=== PATIENT | female | born 2000 | race Caucasian/White ===

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

== ENCOUNTER → 2018-04-09 15:13 | Outpatient (CLI) | payer MEDICAID, SELFPAY ==
--- NOTE | 2018-04-09 | NVE_ITS ---
Venous Exam Indications: 729.5 Pain in limb. IMPRESSIONS 1. There is no evidence of significant Reflux. 2. No evidence of deep or superficial vein thrombosis involving the right lower extremity Right lower extremity venous duplex evaluation. Doppler flow study including spectral analysis, color and saenz scale imaging. Location: Vascular laboratory. Patient status: Outpatient. HRT. Right knee and calf pain x 5 days. Tables: Venous flow and imaging: + +-------+ + Location Overall Flow properties + +-------+ + Right common femoral Patent Normal phasicity; spontaneous; normal augmentation; compressible + +-------+ + Right saphenofemoral junction Patent Compressible + +-------+ + Right profunda femoral Patent Compressible + +-------+ + Right femoral Patent Normal phasicity; spontaneous; normal augmentation; compressible + +-------+ + Right greater saphenous Patent Normal phasicity; spontaneous; normal augmentation; compressible + +-------+ + Right popliteal Patent Normal phasicity; spontaneous; normal augmentation; compressible + +-------+ + Right posterior tibial Patent Compressible + +-------+ + Right peroneal Patent Compressible + +-------+ + Right gastrocnemius Patent Compressible + +-------+ + Right soleal Patent Compressible + +-------+ + (Report amended ) Electronically signed by: Jaime Solis [id number]
== END ==
PROVIDERS: PCP Nurse Practitioner Family; Visit Provider Nurse Practitioner
DX: M79.661 Pain in right lower leg (principal); M79.89 Other specified soft tissue disorders
CPT/HCPCS: 93971

== ENCOUNTER → 2019-12-13 10:00 | Outpatient (CLI) | payer MEDICAID, SELFPAY | PROVIDERS: Visit Provider Nurse Practitioner Family | DX: N39.0 Urinary tract infection, site not specified (principal) | CPT/HCPCS: 87086 ==

== ENCOUNTER → 2019-12-17 16:25 | Outpatient (CLI) | payer MEDICAID, SELFPAY ==
[2019-12-20 11:24] LABS: H. pylori Breath Test Negative (Negative)
== END ==
PROVIDERS: Nurse Practitioner Family; Visit Provider Emergency Medicine
DX: R11.2 Nausea with vomiting, unspecified (principal)
CPT/HCPCS: 83013

== ENCOUNTER 2020-05-22 15:24 | Emergency (ER) | payer MEDICAID, SELFPAY ==
[2020-05-22 15:25] VITALS: BP 170/78; PULSE 87; RESP 18; TEMP 37; O2SAT 98; BMI 31.8
--- NOTE | 2020-05-22 15:36 | HMH.EDGENADL ---
ED Disposition Clinical Impression: Epigastric pain, Chronic diarrhea, Chronic abdominal pain, Chronic vomiting Vomiting Qualifiers: Vomiting type: unspecified Vomiting Intractability: non-intractable Nausea presence: with nausea Qualified Code(s): R11.2 - Nausea with vomiting, unspecified Disposition: Home, Self-Care Condition on Discharge: Good Instructions: DI for Vomiting -- Adult, DI for Diarrhea and Traveler's Diarrhea -- Adult, DI for Abdominal Pain-Adult Additional Instructions: Continue Zofran for nausea and vomiting. Follow-up with gastroenterology. additional instructions for ABDOMINAL PAIN: See your physician as soon as possible for further evaluation. Return immediately if worsening abdominal pain, vomiting, shortness of breath, fever, vomiting of blood or abdominal distention. Referrals: Brian Cohen MD [Primary Care Provider] - - Critical Care Critical Care Time: No Attestation: On , the high probability of a clinically significant, sudden or life threatening deterioration of the following system(s) required my full and direct attention, intervention and personal management. The time I documented below is in addition to time spent performing reported procedures but includes the following listed in this critical care notation. Medical Decision Making - Jd Inquiry Pt receiving controlled substance: No Vital Signs: 05/22/20 15:25 05/22/20 15:45 05/22/20 17:00 Temperature 98.6 F Temperature Source Oral Pulse Rate 77 67 Pulse Rate [Right] 87 Respiratory Rate 18 Blood Pressure 171/95 H 171/94 H Blood Pressure [Right Arm] 170/78 H Blood Pressure Mean [Right Arm] 108 02 Sat by Pulse Oximetry 98 98 97 - Lab Data Lab Results 05/22/20 15:38: WBC 9.1, RBC 5.36, Hgb 15.4, Hct 45.8, MCV 85.5, MCH 28.7, MCHC 33.5, RDW 13.0, Plt Count 304, MPV 8.3, Neut % (Auto) 75.7, Lymph % (Auto) 20.3, Alfalfa % (Auto) 3.3, Eos % (Auto) 0.2, Baso % (Auto) 0.4, Neut # (Auto) 6.9, Lymph # (Auto) 1.8, Alfalfa # (Auto) 0.3, Eos # (Auto) 0.0, Baso # (Auto) 0.0 05/22/20 15:38: Sodium 144, Potassium 3.8, Chloride 111 H, Carbon Dioxide 19 L, Anion Gap 17.8 H, BUN 7, Creatinine 0.70, Estimated Creat Clear 164, Estimated GFR 106, Est GFR ( Amer) 128, Glucose 117 H, Calcium 10.4 H, Total Bilirubin 0.7, AST 33, ALT 26, Alkaline Phosphatase 78, Total Protein 8.9 H, Albumin 5.3 H, Globulin 3.6 H, Albumin/Globulin Ratio 1.5, Lipase 81 05/22/20 15:38: Serum HCG, Qual Negative Result diagrams: 05/22/20 15:38 05/22/20 15:38 Orders (Tests/Meds): ED MEDICATIONS Discontinued Medications Generic Name Dose Route Start Last Admin Trade Name Ajay PRN Reason Stop Dose Admin Ketorolac Tromethamine 30 mg 05/22/20 16:09 05/22/20 16:55 Ketorolac 30mg/Ml Vial IV 05/22/20 16:10 30 mg ONCE ONE Administration Ondansetron HCl 4 mg 05/22/20 15:46 05/22/20 15:48 Ondansetron 4mg/2ml Vial IV 05/22/20 15:47 4 mg ONCE ONE Administration Sodium Chloride 1,000 ml 05/22/20 15:46 05/22/20 15:48 Sodium Chloride 0.9% 1000ml Bag IV 05/22/20 15:47 1,000 ml BOLUS ONE Administration ORDERS Category Date Time Status US gallbladder Stat Exams 05/22/20 15:45 Taken Diarrhea 6-11 Panel, Cdiff PCR Stat Lab 05/22/20 15:48 Ordered Urinalysis and Microscopic Stat Lab 05/22/20 15:47 Ordered - Reevaluation(s) Time: 16:59 Reevaluation #1: Nausea resolved. Still some slight cramps in the abdomen. Would like to try to drink some soda. General Adult HPI - General Stated complaint: Vomiting since 3 am& abdominal pain Time Seen by Provider: 05/22/20 15:36 - History of Present Illness HPI narrative: Says she has had problems with her stomach for 6 months. She says every day she wakes up with abdominal pain and vomiting and has also had persistent diarrhea ever since these problems started. She has seen her PCP. She has been to the emergency department here as well as
[2020-05-22 15:45] VITALS: BP 171/95; PULSE 77; O2SAT 98
--- NOTE | 2020-05-22 15:45 | US_ITS ---
PROCEDURE: US GALLBLADDER CLINICAL INDICATION: epigastric pain Epigastric pain with vomiting COMPARISON: No exams were available for comparison FINDINGS: Pancreas: Unremarkable/Not well seen Liver: Unremarkable. There is appropriate direction of blood flow within a non dilated portal vein. Right kidney: Unremarkable appearing. No hydronephrosis. Gallbladder: No stones are evident. There is no gallbladder wall thickening. Common duct is normal in diameter. IMPRESSION: Negative gallbladder ultrasound. No stones evident. Dictated by: Jaime Solis MD 05/23/2020 05:58 Jaime Solis MD in [place] 05/23/2020 05:58
[2020-05-22 15:53] LABS: Chloride 111 mmol/L (98-107)
[2020-05-22 15:54] LABS: Potassium 3.8 mmoL/L (3.5-5.1); Sodium 144 mmol/L (136-145)
[2020-05-22 15:56] LABS: Alanine Aminotransferase 26 U/L (12-78); Alkaline Phosphatase 78 U/L (38-126); Anion Gap 17.8 mEq/L (5-15); Aspartate Amino Transferase 33 U/L (14-36); Bilirubin,Total 0.7 mg/dl (0.2-1.3); Blood Urea Nitrogen 7 mg/dl (7-17); Carbon Dioxide 19 mmol/L (22.0-30.0); Creatinine Clearance Estimated 164 mL/min (50-200); Estimated Glomerular Filt Rate 106 ml/min (>60); GFR (African American) 128 ML/MIN (>60)
[2020-05-22 15:57] LABS: Albumin Level 5.3 g/dl (3.5-5.0); Albumin/Globulin Ratio 1.5 (1.1-1.8); Basophils % 0.4 % (0.1-2.0); Calcium 10.4 mg/dl (8.4-10.2); Eosinophils % 0.2 % (0.1-12.0); Globulin 3.6 g/dL (1.3-3.2); Glucose 117 mg/dl (74-100); Hematocrit 45.8 % (37.0-47.0); Hemoglobin 15.4 g/dL (12.2-16.2); Lipase 81 U/L (23-300); Lymphocytes # 1.8 K/mm3 (0.7-4.5); Lymphocytes % 20.3 % (10-50); Mean Corpuscular HGB Conc 33.5 g/dL (31.8-35.4); Mean Corpuscular Hemoglobin 28.7 pg (27.0-31.2); Mean Corpuscular Volume 85.5 fl (81-99); Mean Platelet Volume 8.3 fl (7.4-10.4); Monocytes # 0.3 K/mm3 (0.1-1.0); Monocytes % 3.3 % (1.7-9.3); Neutrophils # 6.9 K/mm3 (1.8-7.8); Neutrophils % 75.7 % (37.0-80.0); Platelet Count 304 K/mm3 (142-424); Red Blood Count 5.36 M/mm3 (4.20-5.40); Total Protein,Serum 8.9 g/dl (6.3-8.2); White Blood Count 9.1 K/mm3 (4.8-10.8)
[2020-05-22 15:58] LABS: HCG Qualitative, Serum Negative (Negative)
[2020-05-22 17:00] VITALS: BP 171/94; PULSE 67; O2SAT 97
[2020-05-22 17:23] VITALS: BP 126/73; PULSE 58; O2SAT 98
[2020-05-22 17:50] VITALS: BP 134/71; PULSE 64; RESP 18; TEMP 36.9; O2SAT 99
== END 2020-05-22 17:47 | disposition home or self-care (01) ==
PROVIDERS: Emergency Provider Emergency Medicine; PCP Emergency Medicine
DX: R10.13 Epigastric pain (principal); K21.9 Gastro-esophageal reflux disease without esophagitis
CPT/HCPCS: 76705; 80053; 83690; 84703; 85025; 99282; J2405

== ENCOUNTER → 2020-09-19 17:42 | Outpatient (CLI) | payer MEDICAID, SELFPAY ==
--- NOTE | 2020-09-20 10:42 | PC.NURSE ---
Notified pt at this time that she is positive for Covid,
== END ==
PROVIDERS: Visit Provider Nurse Practitioner Family
DX: Z20.822 Contact with and (suspected) exposure to COVID-19 (principal); U07.1 COVID-19; J02.9 Acute pharyngitis, unspecified
CPT/HCPCS: U0003

== ENCOUNTER 2020-12-26 15:59 | Emergency (ER) | payer MEDICAID, SELFPAY ==
[2020-12-26 16:00] VITALS: BP 141/76; PULSE 70; RESP 19; TEMP 37; O2SAT 99; BMI 40.9
--- NOTE | 2020-12-26 16:14 | XR_ITS ---
PROCEDURE INFORMATION: Exam: XR Left Wrist Exam date and time: 12/26/2020 4:14 PM Age: 20 years old Clinical indication: Pain; Wrist; Left TECHNIQUE: Imaging protocol: XR Left wrist. Views: 3 or more views. COMPARISON: CR [id number] (PINKY)-3 VIEWS 02/27/2015 1:09 PM FINDINGS: Bones/joints: Normal. Soft tissues: Normal. IMPRESSION: No acute findings. If there are snuffbox symptoms which persist, recommend follow up films in 7-10 days time following appropriate clinical management to assess for a healing response.
--- NOTE | 2020-12-26 16:51 | HMH.EDUTC ---
[facility] Disposition Clinical Impression: Wrist pain Qualifiers: Laterality: left Qualified Code(s): M25.532 - Pain in left wrist Disposition: Home, Self-Care Condition on Discharge: Good Instructions: DI for Wrist Sprain, Wrist Sprain, DI for Wrist Pain Additional Instructions: *RICE, Rest the extremity, Ice 15-20 minutes 3-4 times daily, Compress- wear the brennan wrap as discussed as much as possible to help reduce swelling and pain, Elevate the extremity when at rest *Brennan wrap/Velcro wrist splint is for support and help control swelling, use it except in the shower. Be sure that is not to tight but not to loose either *Elevate when resting *Ibuprofen as directed on package every 6-8 hours as needed for pain an inflammation. If need something more can take Tylenol in between doses of Ibuprofen to help Immediately follow up with your family doctor for new or worsening of symptoms, or no noticeable improvement over the next 3-5 days Referrals: Brian Cohen MD [Primary Care Provider] - As needed (Follow up in one week if no improvement with Family Doctor) Time of Disposition: 16:58 Medical Decision Making - Jd Inquiry Pt receiving controlled substance: No Jd was queried for this patient: No Vital Signs: 12/26/20 16:00 Temperature 98.6 F Temperature Source Oral Pulse Rate [Right Brachial] 70 Respiratory Rate 19 Blood Pressure [Right Arm] 141/76 H Blood Pressure Mean [Right Arm] 97 Blood Pressure Source [Right Arm] Automatic Cuff Blood Pressure Position [Right Arm] Sitting 02 Sat by Pulse Oximetry 99 Oxygen Delivery Method Room Air Orders (Tests/Meds): ORDERS Category Date Time Status XR wrist LT min 3V Stat Exams 12/26/20 16:14 Taken - Radiology Data #1 Image(s): Wrist Image Reviewed: Yes I have reviewed radiologist's interpretation IMPRESSION: No acute findings. If there are snuffbox symptoms which persist, recommend follow up films in 7-10 days time following appropriate clinical management to assess for a healing response. [facility] [place] HPI - General Stated complaint: left wrist pain Time Seen by Provider: 12/26/20 16:51 Mode of Arrival: Ambulatory Source of Information: Patient Limitations: No Limitations Description of Symptoms (Recalled from Triage Doc. by RN): PATIENT C/O PAIN TO LEFT WRIST FOR A COUPLE OF MONTHS BUT IS WORSE TODAY. PATIENT STATES PAIN IS SHARP AND RADIATES TO HAND AND FOREARM HEENT Symptoms (Recalled from RN notes): No Resp Symptoms (Recalled from RN notes): No Skin Symptoms (Recalled from RN notes): No MS Symptoms (Recalled from RN notes): Yes Functional Status (Recalled from RN notes): WNL - History of Present Illness Provider Complaint: Patient states that she has been ahving pain on and off in her left wrist that will shoot pain into her forearm and hand States that when she moves her pinky finger it shoots sharp pain States that she doesnt recall doing anything to hurt it but unsure so she came in to get checked - Related Data Allergies Allergy/AdvReac Type Severity Reaction Status Date / Time diphenhydramine Allergy Unknown I-HIVES Verified 12/04/20 10:03 [From YASMIN] - Worker's Comp Is this a Worker's Comp case?: No [facility] History - Hepatitis A Screen Drug use history?: No High risk sexual behaviors?: No History of sexually transmitted infection?: No Currently employed?: No Childcare worker?: No Do you have indoor plumbing?: Yes Do you have electricity?: Yes Attestation statement:: This patient has been screened for Hepatitis A risk factors. I have reviewed the patient's past medical history: Yes Medical History: Reports:: Cancer, Gastroesophageal Reflux Disease(GERD), Heart Murmur Denies:: Diabetes Mellitus Type 1, Diabetes Mellitus Type 2, Hypertension, MRSA Laterality Cases: Bilateral: Tonsillectomy Other Surgeries: Yes: No Previous Surgery Amputation: No Fractures: Yes (Left Pinky finger) Comment: 5th digit LT hand. T
[2020-12-26 17:01] VITALS: BP 141/76; PULSE 70; RESP 19; TEMP 37; O2SAT 99
== END 2020-12-26 17:09 | disposition home or self-care (01) ==
PROVIDERS: Emergency Provider Nurse Practitioner; PCP Emergency Medicine
DX: M25.532 Pain in left wrist (principal); R01.1 Cardiac murmur, unspecified; K21.9 Gastro-esophageal reflux disease without esophagitis
CPT/HCPCS: 29125; 73110; 99202; G0463

== ENCOUNTER 2021-02-12 04:19 | Emergency (ER) | payer MEDICAID, SELFPAY ==
[2021-02-12 04:21] VITALS: BP 176/122; PULSE 111; RESP 16; TEMP 36.8; O2SAT 98; BMI 40.7
--- NOTE | 2021-02-12 04:31 | HMH.EDURI ---
ED Disposition Clinical Impression: COVID-19 Disposition: Home, Self-Care Condition on Discharge: Fair Prescriptions: Oxymetazoline HCl [Afrin Nasal [place] 15mL] 15 ml NS BID #1 ml Transmission Status: Received by [facility] Ondansetron [Zofran 4mg ODT] 4 mg PO BIDP PRN #10 tab PRN Reason: Nausea Transmission Status: Received by [facility] Referrals: Brian Cohen MD [Primary Care Provider] - - Critical Care Critical Care Time: No Attestation: On 02/12/21, the high probability of a clinically significant, sudden or life threatening deterioration of the following system(s) required my full and direct attention, intervention and personal management. The time I documented below is in addition to time spent performing reported procedures but includes the following listed in this critical care notation. Medical Decision Making - Medical Records Medical records reviewed: Yes: I reviewed the patient's medical records. - Jd Inquiry Pt receiving controlled substance: No Vital Signs: 02/12/21 04:21 Temperature 98.3 F Temperature Source Oral Pulse Rate [Right] 111 H Respiratory Rate 16 Blood Pressure [Right Arm] 176/122 H Blood Pressure Mean [Right Arm] 140 02 Sat by Pulse Oximetry 98 - Lab Data Lab results reviewed: Yes: I reviewed the patient's lab results. Lab Results 02/12/21 04:45: SARS-CoV-2 (PCR) Detected A, Influenza A Untype (PCR) Not detected, Influenza Type B (PCR) Not detected Orders (Tests/Meds): ED MEDICATIONS Discontinued Medications Generic Name Dose Route Start Last Admin Trade Name Freq PRN Reason Stop Dose Admin Acetaminophen 500 mg 02/12/21 04:31 02/12/21 04:47 Acetaminophen 500mg Tab PO 02/12/21 04:32 500 mg ONCE ONE Administration Ondansetron HCl 4 mg 02/12/21 04:31 02/12/21 04:47 Ondansetron 4mg Odt SL 02/12/21 04:32 4 mg ONCE ONE Administration Medical Decision Narrative: Patient is a 20-year-old female presents emergency department chief complaint of congestion, nausea vomiting. Differential diagnosis includes COVID-19, influenza, URI pharyngitis have low suspicion for strep. Given this we will swab the patient for COVID-19 and influenza, will plan for symptomatic treatment and give patient Zofran in the emergency department as well as Zofran to go home. We will also give patient Afrin. Patient was positive for covid. URI/Sore Throat HPI - General Chief Complaint: Upper Respiratory Infection Stated Complaint: sore throat,vomiting,vanessa Time Seen by Provider: 02/12/21 04:30 Mode of Arrival: Ambulatory Limitations: No Limitations Description of Symptoms (Recalled from ER Triage Doc. by RN): pt c/o congestion,sore throat,fever,n/v - History of Present Illness HPI Narrative: Is a 20-year-old female presenting to the emergency department chief complaint of congestion, sore throat as well as nausea and vomiting. Patient states that she felt this way 2 days prior and then felt symptoms return this evening. She was at work and was sent home due to her vomiting. She states that she previously had Covid, and has some left eye watering and itching in addition. She is not taken anything to attempt to improve her symptoms today. She denies any other symptoms. Unsure if she received the flu vaccine this year. - Related Data Previous Rx's Medication Instructions Recorded Ondansetron [Zofran 4mg ODT] 4 mg PO BIDP PRN #10 tab 02/12/21 Oxymetazoline HCl [Afrin Nasal 15 ml NS BID #1 ml 02/12/21 [place] 15mL] Allergies Allergy/AdvReac Type Severity Reaction Status Date / Time diphenhydramine Allergy Unknown I-HIVES Verified 12/04/20 10:03 [From YASMIN] [facility] History - Hepatitis A Screen Drug use history?: No High risk sexual behaviors?: No History of sexually transmitted infection?: No Currently employed?: No Childcare worker?: No Do you have indoor plumbing?: Yes Do you have electrici
[2021-02-12 05:01] LABS: Influenza A, PCR Not Detected (NotDetected); Influenza B, PCR Not Detected (NotDetected)
[2021-02-12 05:23] LABS: Coronavirus 19, PCR Detected (NotDetected)
[2021-02-12 05:46] VITALS: BP 147/98; PULSE 99; RESP 16; TEMP 36.8; O2SAT 98
== END 2021-02-12 05:47 | disposition home or self-care (01) ==
PROVIDERS: Emergency Provider Emergency Medicine; PCP Emergency Medicine
DX: U07.1 COVID-19 (principal); K21.9 Gastro-esophageal reflux disease without esophagitis; R01.1 Cardiac murmur, unspecified
CPT/HCPCS: 99282; C9803; U0003; U0005

== ENCOUNTER 2021-08-30 20:20 | Emergency (ER) | payer BC, MEDICAID, SELFPAY ==
[2021-08-30 20:21] VITALS: BP 114/97; PULSE 102; RESP 16; TEMP 36.9; O2SAT 98; BMI 35.4
--- NOTE | 2021-08-30 20:40 | PC.NURSE ---
at updating pt on POC
--- NOTE | 2021-08-30 20:55 | HMH.EDSKAF ---
ED Disposition Clinical Impression: Cellulitis Qualifiers: Site of cellulitis: extremity Site of cellulitis of extremity: upper extremity Laterality: right Qualified Code(s): L03.113 - Cellulitis of right upper limb Insect bite Qualifiers: Encounter type: initial encounter Site of insect bite: upper arm Laterality: right Qualified Code(s): S40.861A - Insect bite (nonvenomous) of right upper arm, initial encounter; W57.XXXA - Bitten or stung by nonvenomous insect and other nonvenomous arthropods, initial encounter Disposition: Home, Self-Care Condition on Discharge: Good Instructions: DI for Insect Bites and Stings Additional Instructions: use meds and see pcp for follow up Prescriptions: Loratadine [Claritin 10mg Tablet] 10 mg PO DAILY #30 tab Transmission Status: Pending to [facility] clindamycin HCL [Clindamycin HCl] 300 mg PO TID #21 cap Transmission Status: Pending to [facility] Referrals: Brian Cohen MD [Primary Care Provider] - - Critical Care Critical Care Time: No Attestation: On 08/30/21, the high probability of a clinically significant, sudden or life threatening deterioration of the following system(s) required my full and direct attention, intervention and personal management. The time I documented below is in addition to time spent performing reported procedures but includes the following listed in this critical care notation. Medical Decision Making - Medical Records Medical records reviewed: Yes: I reviewed the patient's medical records. - Jd Inquiry Pt receiving controlled substance: No Vital Signs: 08/30/21 20:21 Temperature 98.4 F Temperature Source Oral Pulse Rate [Left Radial] 102 H Respiratory Rate 16 Blood Pressure [Right Arm] 114/97 H Blood Pressure Mean [Right Arm] 102 Blood Pressure Source [Right Arm] Automatic Cuff Blood Pressure Position [Right Arm] Sitting 02 Sat by Pulse Oximetry 98 Oxygen Delivery Method Room Air Orders (Tests/Meds): ED MEDICATIONS Generic Name Dose Route Start Last Admin Trade Name Freq PRN Reason Stop Dose Admin Mupirocin 1 gm 08/30/21 21:00 Mupirocin 2% Ointment 22gm Tube TP 09/29/21 20:59 BID MARIE Medical Decision Narrative: has early cellulitis and treat local at this time Skin/Abscess/FB HPI - General Chief complaint: Skin/Abscess/Foreign Body Stated complaint: possible bite R shoulder Time Seen by Provider: 08/30/21 20:55 Mode of Arrival: Ambulatory Source of Information: Patient, Medical Record Limitations: No Limitations Description of Symptoms (Recalled from ER Triage Doc. by RN): RIGHT SHOULDER RED SPOT - PATIENT BELIEVES IT IS A SPIDER BITE - History of Present Illness HPI narrative: pt with possible insect bite on rt shoulder - noted this pm MD complaint: insect bite/sting Onset (ago): hour(s) Tetanus up to date: unsure Location: RUE Severity: moderate Associated symptoms: denies other symptoms Treatments prior to arrival: none - Related Data Previous Rx's Medication Instructions Recorded Ondansetron [Zofran 4mg ODT] 4 mg PO BIDP PRN #10 tab 02/12/21 Oxymetazoline HCl [Afrin Nasal 15 ml NS BID #1 ml 02/12/21 [place] 15mL] medroxyprogesterone 150 mg/mL See Rx Instructions .ROUTE 08/26/21 intramuscular suspension .COMPLEX #1 ml Loratadine [Claritin 10mg 10 mg PO DAILY #30 tab 08/30/21 Tablet] clindamycin HCL [Clindamycin HCl] 300 mg PO TID #21 cap 08/30/21 Allergies Allergy/AdvReac Type Severity Reaction Status Date / Time diphenhydramine Allergy Unknown I-HIVES Verified 06/24/21 13:56 [From BENADRYL] [facility] History - Hepatitis A Screen Attestation statement:: This patient has been screened for Hepatitis A risk factors. I have reviewed the patient's past medical history: Yes Medical History: Reports:: Cancer, Gastroesophageal Reflux Disease(GERD), Heart Murmur Denies:: Diabetes Mellitus Type 1, Diabetes Mellitus Type 2, Hyper
[2021-08-30 21:24] VITALS: BP 85/69; PULSE 87; RESP 16; TEMP 36.8; O2SAT 97
== END 2021-08-30 21:26 | disposition home or self-care (01) ==
PROVIDERS: Emergency Provider Emergency Medicine; PCP Emergency Medicine
DX: L03.113 Cellulitis of right upper limb (principal); S40.861A Insect bite (nonvenomous) of right upper arm, initial encounter; W57.XXXA Bitten or stung by nonvenomous insect and other nonvenomous arthropods, initial encounter; Z88.8 Allergy status to other drugs, medicaments and biological substances; K21.9 Gastro-esophageal reflux disease without esophagitis; R01.1 Cardiac murmur, unspecified; Z85.9 Personal history of malignant neoplasm, unspecified; Z83.3 Family history of diabetes mellitus
CPT/HCPCS: 99283

== ENCOUNTER 2024-06-16 22:15 | Emergency (ER) | payer BC, SELFPAY ==
[2024-06-16 22:23] VITALS: BP 118/86; PULSE 103; RESP 20; TEMP 36.6; O2SAT 99; BMI 29.0
[2024-06-16 22:30] VITALS: BP 124/81; PULSE 94; O2SAT 98
--- NOTE | 2024-06-16 22:54 | [facility].EDGENADL ---
Discharge Plan Disposition Patient Disposition: Home, Self-Care Prescriptions Prescriptions: New methocarbamol 500 mg tablet 500 mg PO Q6H PRN (Reason: muscle spasm) Qty: 30 0RF lidocaine 5 % adhesive patch,medicated See Rx Instructions .ROUTE .COMPLEX Qty: 15 0RF Rx Instructions: Apply to most painful area and leave on for 12 hours. Remove and leave off for 12 hours before using a new patch No Action medroxyprogesterone 150 mg/mL suspension See Rx Instructions .ROUTE .COMPLEX Qty: 1 0RF Dose Instruction: INJECT EVERY 3 MONTHS Rx Instructions: INJECT EVERY 3 MONTHS patient needs to make an appt before anymore refills Referrals Follow up/Referrals: Provider,Referral, [Primary Care Provider] - See instructions Activity Restrictions/Add. Instructions Additional Instructions/Restrictions: You were evaluated in the ER and are believed to be appropriate for discharge at this time. Take the prescribed medications as directed. Methocarbamol is a muscle relaxer and may make you sleepy. Do not drive or operate machinery after taking it. Take Tylenol and ibuprofen if needed for pain, do not exceed the recommended dose on the bottle. Drink water and eat a small snack each time you take these medications to avoid side effects. Make an appointment with your primary care doctor for reevaluation in 2 to 3 days. Return to the ER with any new, worsening, or otherwise concerning symptoms. Clinical Impressions Clinical Impression: Lower back pain Instructions Patient Instructions: DI for Low Back Pain Print Language Print Language: Romansh Discharge ED Provider: Jasmin Pelayo General Adult HPI <Jasmin Pelayo MD - Last Filed: 06/16/24 22:57> General Chief complaint: Back Pain/Injury Stated complaint: AO 5-3 lower back pain pulled something Time Seen by Provider: 06/16/24 22:42 Mode of Arrival: Ambulatory Source of Information: Patient Description of Symptoms (Recalled from ER Triage Doc. by RN): patient states that she was putting her shoes on and leaned over when she had a sharp pain in her lower back and its been getting worse all day. History of Present Illness HPI narrative: Patient is a 23-year-old female who is previously healthy presenting today with sudden back pain while bending over to try to put on her shoe located in the midline of the lumbar spine. Is not radiating she has not had any urinary or bowel incontinence no urinary retention no saddle anesthesia no lower extremity paralysis history of fevers no history of injection drug use. States is not significantly worse with movement or touch. Related Data Previous Rx's ?Medication ?Instructions ?Recorded medroxyprogesterone 150 mg/mL See Rx Instructions .Route 03/15/24 intramuscular suspension .COMPLEX #1 mL lidocaine 5 % topical patch See Rx Instructions topical 06/17/24 .COMPLEX #15 ea methocarbamol 500 mg tablet 500 mg PO Q6H PRN muscle spasm #30 06/17/24 tabs Allergies Allergy/AdvReac Type Severity Reaction Status Date / Time diphenhydramine (From Allergy Unknown I-HIVES Verified 09/07/22 13:26 BENADRYL) [facility] <Jasmin Pelayo MD - Last Filed: 06/16/24 22:57> [facility] Disclaimer: The information contained in this section may have been updated after the patient was seen, as this information can be updated by other users. Social History Smoking Status: Never smoker second hand exposure: No alcohol intake: never substance use type: denies use current occupational status: other Travel in the last 8 weeks?: None household members: family housing: house Have you lived/traveled outside [place] in past 30 days?: No Contact w/someone who lives/traveled outside [place] past 30 days?: No Exposure to someone with infectious disease in past 14 days?: No Do you have a fever (greater than 100.4 F or 38 C)?: No Have you tested positive for COVID-19?: No Exposed to someone with COVID-19 in past 14 days?: No Do you have a sore throat?: No Do you have a cough?: No Do you have any weakness?: No Do you have any diarrhea?: No Are you experiencing any unusual bleeding?: No Do you have any muscle aches/pain?: Yes Do you have any abdominal pain?: No Are you experiencing loss of taste or smell?: No Other Medical History Have you received the Flu Vaccine for this season: No Have you received the Pneumonia Vaccine: No <Jasmin Pelayo MD - Last Filed: 06/16/24 22:57> ROS Obtained: Yes All systems reviewed & no additional complaints except as documented Physical Exam <Jasmin Pelayo MD - Last Filed: 06/16/24 22:57> General General appearance: alert Respiratory Respiratory exam: Present normal lung sounds bilaterally Cardiovascular Cardiovascular exam: Present regular rate Back Exam Back exam: Present tenderness (Patient does have midline lumbar spine tenderness no significant paraspinal muscular tenderness she has no distal neurovascular abnormalities she has normal motor strength throughout normal sensation throughout) Neurological Exam Neurological exam: Present alert and oriented X3 Medical Decision Making <Jasmin Pelayo MD - Last Filed: 06/16/24 22:57> Medical Records Screening: Per USPSTF and CDC recommendations, given the prevalence of disease in our region, it is our hospital?s policy to screen for HIV and viral Hepatitis for all patients aged 18 and over and those with ongoing risk factors. Jd Inquiry Pt receiving controlled substance: No Vital Signs: 06/16/24 22:23 06/16/24 22:30 Temperature 97.8 F Temperature Source Oral Pulse Rate 94 H Pulse Rate [Left] 103 H Respiratory Rate 20 Blood Pressure 124/81 Blood Pressure [Right Arm] 118/86 Blood Pressure Mean [Right Arm] 96 Blood Pressure Source [Right Arm] Automatic Cuff Blood Pressure Position [Right Arm] Sitting 02 Sat by Pulse Oximetry 99 98 Oxygen Delivery Method Room Air Lab Data Lab Results 06/16/24 23:43: Urine HCG, Qual Negative Orders (Tests/Meds): ED MEDICATIONS Discontinued Medications Generic Name Dose Route Start Last Admin Trade Name Ajay PRN Reason Stop Dose Admin Cyclobenzaprine HCl 5 mg 06/16/24 22:52 06/16/24 23:23 Cyclobenzaprine 10mg Tablet PO 06/16/24 22:53 5 mg ONCE ONE Administration Ketorolac Tromethamine 30 mg 06/16/24 22:52 06/16/24 23:22 Ketorolac 30mg/Ml Vial IM 06/16/24 22:53 30 mg ONCE ONE Administration Lidocaine 1 each 06/16/24 22:52 06/16/24 23:22 Lidocaine 5% Transdermal Patch TD 06/16/24 22:53 1 each ONCE ONE Administration Prednisone 60 mg 06/16/24 22:52 06/16/24 23:21 Prednisone 20mg Tab PO 06/16/24 22:53 60 mg ONCE ONE Administration ORDERS Category Date Time Status CT lumbar spine wo con Stat Cat Scan 06/16/24 22:53 Ordered Urine , HCG Qual. Stat Lab 06/16/24 23:43 Completed Medical Decision Narrative: Well-appearing 23-year-old female with largely normal exam specifically with regards to concerns for central [employer] compression such as spinal cord compression or central nerve root compression that would be associated with condition such as cauda equina syndrome. There remains in the differential but extremely unlikely. No indication for emergent MRI. Patient does however have midline spinal pain that warrant CT imaging. Differential includes with regards to this pathologic fracture malignancy etc. Does remain unlikely. Most likely is a acute musculoskeletal strain in this region. Symptomatically occasions have been administered will reassess after imaging and medications have had a chance to work. Care will be transitioned to Dr. Bell at 11 PM <Marilee Bell MD - Last Filed: 06/17/24 00:12> Vital Signs: 06/16/24 22:23 06/16/24 22:30 Temperature 97.8 F Temperature Source Oral Pulse Rate 94 H Pulse Rate [Left] 103 H Respiratory Rate 20 Blood Pressure 124/81 Blood Pressure [Right Arm] 118/86 Blood Pressure Mean [Right Arm] 96 Blood Pressure Source [Right Arm] Automatic Cuff Blood Pressure Position [Right Arm] Sitting 02 Sat by Pulse Oximetry 99 98 Oxygen Delivery Method Room Air Lab Data Lab Results 06/16/24 23:43: Urine HCG, Qual Negative Orders (Tests/Meds): ED MEDICATIONS Discontinued Medications Generic Name Dose Route Start Last Admin Trade Name Leonq PRN Reason Stop Dose Admin Cyclobenzaprine HCl 5 mg 06/16/24 22:52 06/16/24 23:23 Cyclobenzaprine 10mg Tablet PO 06/16/24 22:53 5 mg ONCE ONE Administration Ketorolac Tromethamine 30 mg 06/16/24 22:52 06/16/24 23:22 Ketorolac 30mg/Ml Vial IM 06/16/24 22:53 30 mg ONCE ONE Administration Lidocaine 1 each 06/16/24 22:52 06/16/24 23:22 Lidocaine 5% Transdermal Patch TD 06/16/24 22:53 1 each ONCE ONE Administration Prednisone 60 mg 06/16/24 22:52 06/16/24 23:21 Prednisone 20mg Tab PO 06/16/24 22:53 60 mg ONCE ONE Administration ORDERS Category Date Time Status CT lumbar spine wo con Stat Cat Scan 06/16/24 22:53 Ordered Urine , HCG Qual. Stat Lab 06/16/24 23:43 Completed Medical Decision Narrative: Well-appearing 23-year-old female with largely normal exam specifically with regards to concerns for central [employer] compression such as spinal cord compression or central nerve root compression that would be associated with condition such as cauda equina syndrome. There remains in the differential but extremely unlikely. No indication for emergent MRI. Patient does however have midline spinal pain that warrant CT imaging. Differential includes with regards to this pathologic fracture malignancy etc. Does remain unlikely. Most likely is a acute musculoskeletal strain in this region. Symptomatically occasions have been administered will reassess after imaging and medications have had a chance to work. Care will be transitioned to Dr. Bell at 11 PM Bell: Upon my assumption of care patient is stable. I agree with the assessment and plan from Dr. Pelayo. Patient has no red flag symptoms for cauda equina such as saddle anesthesia or bowel or bladder incontinence. Labs reviewed demonstrating test negative. Patient reports despite receiving medication she does not think she is going to be able to lay flat for CT and is refusing it. I explained to her that we could be missing injury such as fracture, malalignment of the spine, among other things which if missed could lead to more pain, further injury, permanent disability, or though unlikely. She understands this and is still refusing the CT scan. Postvoid bladder scan less than 50 mL significantly reassuring against cauda equina or other cord injury. I have lower suspicion for bony injury since patient did not have high-energy mechanism of injury. Since she is refusing CT scan, at this time I believe she is appropriate for discharge. She has been ambulatory through the ER and does not have any neurologic deficits. I prescribed methocarbamol and lidocaine patch for outpatient management. Patient was given instructions on symptomatic management, follow up instructions, and return precautions for the emergency department. Patient indicated understanding and was discharged in stable condition. Critical Care <Jasmin Pelayo MD - Last Filed: 06/16/24 22:57> Critical Care Time Critical Care Time: No
[2024-06-16] MEDS: predniSONE 20MG TAB 60 MG PO (23:21)
[2024-06-16] MEDS: LIDOCAINE 5% TRANSDERMAL PATCH 1 EACH TD (23:22)
[2024-06-16] MEDS: KETOROLAC 30MG/ML VIAL 30 MG IM (23:22)
[2024-06-16] MEDS: CYCLOBENZAPRINE 10MG TABLET 5 MG PO (23:23)
[2024-06-16 23:53] LABS: Urine Pregnancy, HCG Qual. Negative (Negative)
[2024-06-17 00:10] VITALS: BP 130/92; PULSE 79; O2SAT 97
--- NOTE | 2024-06-17 00:10 | PC.NURSE ---
post void bladder scan completed. reading was less than 50
[2024-06-17 00:15] VITALS: BP 130/92; PULSE 82; RESP 16; TEMP 36.7; O2SAT 97
== END 2024-06-17 00:22 | disposition home or self-care (01) ==
PROVIDERS: Emergency Provider Student in an Organized Health Care Education/Training Program
DX: M54.50 Low back pain, unspecified (principal); X50.0XXA Overexertion from strenuous movement or load, initial encounter
CPT/HCPCS: 81025; 96372; 99283; J1885